=== PATIENT | female | born 1955 | race African-American/Black ===

== ENCOUNTER 2018-06-06 00:34 | Emergency (ER) | payer BC, OTHER ==
[~2018-06-06] VITALS: Ht 157.5 cm; Wt 104.0 kg
[2018-06-06] MEDS ORDERED: ACETAMINOPHEN 325MG TABLET PO STA (01:21)
[2018-06-06] MEDS ORDERED: KETOROLAC 30MG/ML VIAL IV STA (01:21)
[2018-06-06] MEDS ORDERED: SODIUM CHLORIDE 0.9% 1000ML BAG (SEPSIS BOLUS) IV ONE (01:30)
[2018-06-06 02:49] LABS: CHLORIDE 99 mEq/L (98-107)
[2018-06-06 02:50] LABS: BASOPHILS % 0.5 % (0.0-2.0); EOSINOPHILS % 0.2 % (0.0-5.0); HEMATOCRIT. 41.1 % (36.0-48.0); HEMOGLOBIN. 13.5 g/dL (12.0-16.0); LYMPHOCYTES % 10.4 % (20.0-50.0); MEAN CORPUSCULAR HEMOGLOBIN 30.3 pg (28.0-32.0); MEAN CORPUSCULAR VOLUME 92.1 fL (81.0-99.0); MEAN PLATELET VOLUME 9.1 fl (7.4-10.4); MONOCYTES % 14.4 % (2.0-8.0); NEUTROPHILS % 74.5 % (40.0-76.0); PLATELET 138 x1000/uL (130-400); RED BLOOD CELL COUNT 4.46 mill/uL (4.2-5.4)
[2018-06-06 02:51] LABS: INR 1.1; PROTHROMBIN TIME 10.7 sec (9.1-11.1)
[2018-06-06] MEDS ORDERED: OSELTAMIVIR 75MG CAPSULE PO ONE (03:15)
[2018-06-06 05:06] VITALS: BP 119/63
[2018-06-06 10:54] LABS: CLARITY URINE CLOUDY (CLEAR); COLOR URINE DARK YELLOW (YELLOW); KETONES URINE TRACE (NEGATIVE); LEUKOCYTE ESTERASE URINE NEGATIVE (NEGATIVE); NITRITE URINE NEGATIVE (NEGATIVE); OCCULT BLOOD URINE NEGATIVE (NEGATIVE); PROTEIN URINE 1+ (NEGATIVE); SPECIFIC GRAVITY URINE 1.031 (1.005-1.030); UROBILINOGEN URINE 0.2 E.U./dL (0.2-1.0)
== END 2018-06-06 05:17 | disposition home or self-care (01) ==
LOC: ER 00:34 → CANBEDREQ 16:28
DX: J09.X2 Influenza due to identified novel influenza A virus with other respiratory manifestations (principal); R50.9 Fever, unspecified; M79.10 Myalgia, unspecified site; E87.6 Hypokalemia; R73.9 Hyperglycemia, unspecified; R11.2 Nausea with vomiting, unspecified; E78.00 Pure hypercholesterolemia, unspecified; I10 Essential (primary) hypertension; L40.9 Psoriasis, unspecified
CPT/HCPCS: 36415; 71045; 80053; 81003; 83605; 84145; 84484; 85025; 85610; 87040; 87086; 87804; 93005; 96361; 96374; 99284; J1885; J7030; Z7610